=== PATIENT | male | born 1945 | race Caucasian/White ===

== ENCOUNTER 2020-02-12 15:03 | Outpatient (CLI) | payer MEDICARE, BC ==
[~2020-02-12 15:03] MED LIST: Iopamidol-370 76% 500 ML 1 ML ONE
--- NOTE | 2020-02-12 16:26 | CT ---
CT Abdomen Pelvis W WO con History: Low back pain Comparison: None. Findings: Likely atelectatic changes within the right middle lobe. No significant pericardial effusio n. Normal proximal small bowel rotation. Mild fullness of the bilateral renal pelvis by proximal ureters likely due to increased pressure from highly distended urinary bladder. Fat-containing left indirect internal hernia. No dilated loops of large or small bowel. The appendix is felt to be visualized and appears normal. No abnormal renal enhancing mass. No abnormal enhancing renal urothelial mass. No filling defect on the delayed phase of contrast sequence. The liver, spleen, pancreas unremarkable as well as the adrenal glands. No acute osseous abnormality. Moderate degenerative disc space disease at L5/S1 with circumferential disc osteophyte complex. The aortic contour is nonaneurysmal. No retroperitoneal periaortic adenopathy. Impression: 1. No hydroureteronephrosis or nephroureterolithiasis. No secondary evidence of a recently passed sto ne. 2. Mild fullness of both renal pelvi likely sequelae of increased back pressure from the markedly dis tended urinary bladder. 3. No abnormal renal enhancing mass nor urothelial mass. 4. No filling defects within the renal calyces, pelvi, ureters, nor posterior urinary bladder. 5. Small-moderate left fat containing indirect internal hernia.
== END 2020-02-12 15:04 | disposition home or self-care (01) ==
LOC: BICCT 15:03
DX: M54.5 Low back pain (principal); K46.9 Unspecified abdominal hernia without obstruction or gangrene
CPT/HCPCS: 74178; 82565

== ENCOUNTER 2020-03-18 09:32 | Outpatient (CLI) | payer MEDICARE, BC, OTHER ==
[2020-03-18 14:37] LABS: INR-International Normal Ratio 0.9; PTT 29.9 sec (22.9-36.1); Prothrombin Time 12.2 sec (12.0-14.7)
[2020-03-18 14:48] LABS: Hemoglobin 15.2 g/dL (14.0-18.0); Mean Corpuscular HGB CONC 33.9 g/dL (32.0-36.0); Mean Corpuscular Hemoglobin 31.7 pg (27.0-31.0); Mean Corpuscular Volume 93.4 fL (78.0-98.0); Mean Platelet Volume 8.7 fL (7.4-10.4); Platelet Count 141 thou/uL (130-400); RBC Distribution Width 12.2 % (11.5-14.5); Red Blood Cell (RBC) Count 4.79 mill/uL (4.70-6.10); White Blood Cell (WBC) Count 6.4 thou/uL (4.8-10.8)
[2020-03-18 15:50] LABS: Anion Gap 10 mmol/L (10-20); BUN (Urea Nitrogen) 13 mg/dL (8.4-25.7); Calc. Creatinine Clearance 0 mL/min (70-130); Calcium 8.9 mg/dL (7.8-10.44); Carbon Dioxide 27 mmol/L (23-31); Chloride 102 mmol/L (98-107); Estimated GFR-MDRD 65; Glucose 97 mg/dL (83-110); Potassium 4.4 mmol/L (3.5-5.1); Sodium 135 mmol/L (136-145); Uric Acid 4.5 mg/dL (3.5-7.2)
[2020-03-19 12:28] LABS: SARS-CoV-2 MS2 Positive; SARS-CoV-2 N Gene Negative; SARS-CoV-2 S Gene Negative; SARS-CoV-2 by NAA Not Detected (NotDetected); SARS-CoV-2 orf1ab Negative
== END 2020-03-18 09:33 | disposition home or self-care (01) ==
LOC: LABBT 09:32
PROVIDERS: ATTEND Urology
DX: Z01.812 Encounter for preprocedural laboratory examination (principal); Z20.828 Contact with and (suspected) exposure to other viral communicable diseases; R33.9 Retention of urine, unspecified; R82.998 Other abnormal findings in urine; R30.0 Dysuria; R10.2 Pelvic and perineal pain; N40.1 Benign prostatic hyperplasia with lower urinary tract symptoms; R39.15 Urgency of urination; Z87.442 Personal history of urinary calculi
CPT/HCPCS: 80048; 84550; 85027; 85610; 85730; U0003; 87635

== ENCOUNTER 2020-03-23 08:25 | Day surgery (SDC) | payer MEDICARE, BC ==
[2020-03-22 10:01] VITALS: BMI 30.7
[2020-03-23] MEDS ORDERED: cefTRIAXone\\ROCEPHIN 2 GM VIAL ONE (08:36)
[2020-03-23] MEDS ORDERED: Sodium Chloride 0.9% 100 ML ONE (08:36)
[2020-03-23] MEDS ORDERED: Fentanyl 100 MCG/2 ML VIAL ONE (08:59)
[2020-03-23] MEDS ORDERED: Lidocaine 1% PF 5 ML VIAL ONE (09:42)
[2020-03-23] MEDS ORDERED: EPHEDRINE 25 MG/5 ML SYRINGE ONE (09:42)
[2020-03-23] MEDS ORDERED: PROPOFOL 200 MG/20 ML VIAL ONE (09:42)
[2020-03-23] MEDS ORDERED: Glycopyrrolate 0.2 MG/ML 5 ML SYRINGE ONE (09:42)
--- NOTE | 2020-03-23 10:04 | ULT ---
Bladder sonogram HISTORY: Bladder outlet obstruction. FINDINGS: Urinary bladder is decompressed by a Wiggins catheter. Balloon within the urinary bladder. No bowel is seen between the incompletely distended bladder and the lower abdominal wall midline.
[2020-03-23] MEDS ORDERED: Phenazopyridine HCl 97.5 MG TABLET ONE (10:24)
--- NOTE | 2020-03-23 11:25 | OP ---
DATE OF PROCEDURE: 03/23/2020 PREOPERATIVE DIAGNOSIS: A 75-year-old male with history of benign prostatic hyperplasia, chronic urinary retention, presenting PVR over 1.2 L. IPSS score of 17. POSTOPERATIVE DIAGNOSES: A 75-year-old male with history of benign prostatic hyperplasia, chronic urinary retention, presenting PVR over 1.2 L. IPSS score of 17. PROCEDURES PERFORMED: Cystoscopy, UroLift implant x5, 16-[place] 10 mL suprapubic tube placement. ANESTHESIA: LMA. COMPLICATIONS: None apparent. DISPOSITION: To recovery room in stable condition. INDICATIONS FOR PROCEDURE AND HISTORY: Mr. Moore is a pleasant 75-year-old male , on dual medical therapy for BPH for numerous years. He recently saw Dr. Romero and transferred care . workup demonstrated a large bladder, postvoid residual of 1200 mL, prominence of the ureters and significantly distended bladder. He underwent appropriate workup and presents today for cysto, UroLift. He desires less invasive approach, we did discuss options of TURP as well. He has had an indwelling Wiggins catheter and due to his presenting PVR, significantly distended bladder, concomitant suprapubic tube was advised as an option to monitor his PVRs, which he agreed. Risks and complications of the procedure were reviewed with him in detail including, but not limited to: Bleeding, pain, infection, injury to adjacent organs such as bowel contents, chronic pain, clot retention, possible migration of the UroLift implant resulting in incrustation requiring removal and more definitive surgery such as TURP. Continuing medical therapy was also discussed with him in detail and he desired to proceed. DESCRIPTION OF PROCEDURE: After an informed consent was signed, the patient was taken to the operating room, placed in a dorsal lithotomy position with the genital area prepped and draped in the usual surgical sterile fashion. A cystoscopy was performed for staging, demonstrating bilobar hyperplasia of the prostate. No median lobe was noted. Bladder demonstrated diffuse inflammatory changes consistent with chronic indwelling Wiggins catheter. The UOs were difficult to identify due to bullous edema. No bladder stones were seen. Sedimentous debris consistent with chronic outlet obstruction. Chronic Wiggins was observed. At this time, we transitioned to the UroLift cystoscope with the visual obturator. We placed a total of 3 implants on the left, two on the right. At the end of the procedure, he had wide anterior channel with open bladder neck. Obstructive component had resolved. At this time, we distended bladder with the cystoscope. Intraoperative ultrasound was obtained to keep bowel contents out of away. Bladder was distended to the level of the umbilicus. At this time, using an 18-gauge spinal needle, we chose a site about 2 fingerbreadths above the pubic symphysis. Clear output was noted through the syringe. An 11 blade was utilized to make a fascial incision and using a Cook trocar, 16-[place] needle, we placed this in the level of the bladder. A 0.035 Super Stiff wire was placed in the level of bladder. Under direct visualization, using a NephroMax balloon dilator, we dilated the tract to 30-[place]. Subsequently, a 16-[place] tip catheter passed without difficulty. A 15 mL of sterile water insufflated. Suprapubic tube was plugged and dressing applied. We will monitor him in the recovery room for a voiding trial. He will monitor his PVR through his SP tube. He will see me tomorrow for peak flow PVR. He is discharged with [facility] for course of 7 days, Azo p.r.n. He is to resume his dual medical therapy until further notice. Job ID: [id number] [facility]
[2020-03-23] MEDS ORDERED: HYDROcodone/Acetaminophen 5/325 mg Tablet ONE (12:01)
== END 2020-03-23 13:40 | disposition home or self-care (01) ==
LOC: SDC 08:25
PROVIDERS: ATTEND Urology
PROC: 0T7D8DZ Dilation of Urethra with Intraluminal Device, Via Natural or Artificial Opening Endoscopic (ICD-10-PCS; principal; 2020-03-23)
DX: N40.1 Benign prostatic hyperplasia with lower urinary tract symptoms (principal); R33.8 Other retention of urine; R39.15 Urgency of urination; R30.0 Dysuria; E03.9 Hypothyroidism, unspecified; R82.998 Other abnormal findings in urine; E66.9 Obesity, unspecified; Z68.30 Body mass index [BMI] 30.0-30.9, adult; Z79.899 Other long term (current) drug therapy
CPT/HCPCS: C1889; J0696; J2704; J3010; J3490

== ENCOUNTER 2024-11-05 12:30 | Outpatient (CLI) | payer MEDICARE, BC ==
[2024-11-05] MEDS ORDERED: Sodium Bicarbonate 2.5 MEQ/5 ML SDV ONE (13:01)
[2024-11-05] MEDS ORDERED: LIDOCAINE 1% FS SCH (13:45)
[2024-11-05] MEDS ORDERED: ADMIXTURE FEE FS SCH (13:45)
[2024-11-05] MEDS ORDERED: METHYLPREDNISOLONE ACETATE FS SCH (13:45)
[2024-11-05] MEDS ORDERED: Iopamidol 30 ML ONE (14:15)
== END 2024-11-05 12:31 | disposition home or self-care (01) ==
LOC: RAD 12:30
PROVIDERS: ATTEND Orthopaedic Surgery Adult Reconstructive Orthopaedic Surgery
PROC: 0S9B3ZZ Drainage of Left Hip Joint, Percutaneous Approach (ICD-10-PCS; principal; 2024-11-05)
DX: M25.552 Pain in left hip (principal)
CPT/HCPCS: 20610; 77002; J1010; Q9967